=== PATIENT | female | born 1970 | race Hispanic/Latino ===

== ENCOUNTER 2016-10-03 11:57 | Inpatient (IN) | payer MEDICARE ==
[2016-10-03 11:58] VITALS: BMI 21.8
[2016-10-03 13:13] LABS: BASO # 0.1 K/uL (0.0-0.2); BASO % 0.9 % (0.0-2.0); EOS # 0.1 K/uL (0.0-0.7); EOS % 0.7 % (0.0-4.0); HEMATOCRIT 41.7 % (34.0-47.0); LYMPH # 1.9 K/uL (1.0-4.3); LYMPH % 22.4 % (20.0-40.0); MEAN CELL VOLUME 95.1 fL (81.0-99.0); MEAN CORPUSCULAR HEMOGLOBIN 31.6 pg (27.0-31.0); MEAN CORPUSCULAR HGB CONC 33.2 g/dL (33.0-37.0); MEAN PLATELET VOLUME 9.5 fL (7.2-11.7); MONO # 0.4 K/uL (0.0-0.8); MONO % 4.2 % (0.0-10.0); WHITE BLOOD COUNT 8.7 K/uL (4.8-10.8)
[2016-10-03 13:20] LABS: CHLORIDE 103 mmol/L (98-107)
[2016-10-03 13:21] LABS: POTASSIUM 4.3 mmol/L (3.6-5.2); SODIUM 138 mmol/L (132-148)
[2016-10-03 13:23] LABS: ALB/GLOB RATIO 1.3 (1.0-2.1); ALKALINE PHOSPHATASE 71 U/L (38-126); ALT/SGPT 54 U/L (9-52); AST/SGOT 53 U/L (14-36); BILIRUBIN,TOTAL 0.6 mg/dL (0.2-1.3); BLOOD UREA NITROGEN 14 mg/dL (7-17); CARBON DIOXIDE 27 mmol/L (22-30); GFR AFRICAN-AMERICAN > 60; GLUCOSE,RANDOM 94 mg/dL (65-105); TOTAL PROTEIN 7.1 g/dL (6.3-8.3)
[2016-10-03 13:24] LABS: ALCOHOL SERUM < 10 mg/dl (0-10); CALCIUM 8.5 mg/dl (8.6-10.4)
[2016-10-03 13:36] LABS: RBC URINE 9 /hpf (0-3); URINE BILIRUBIN NEGATIVE (NEGATIVE); URINE BLOOD 2+ (NEGATIVE); URINE COLOR Yellow (YELLOW); URINE GLUCOSE (UA) NORMAL (Normal); URINE KETONE NEGATIVE (NEGATIVE); URINE LEUKOCYTE ESTERASE NEG Leu/uL (Negative); URINE PROTEIN 1+ mg/dL (NEGATIVE); URINE UROBILINOGEN NORMAL mg/dL (0.2-1.0); WBC URINE 2 /hpf (0-5)
--- NOTE | 2016-10-03 14:23 | C.PDOC ---
History Of Present Illness Patient presents to ER c/o feeling depresed and suicidal. She admits to history of heroin use, sniffs 7 bags daily, last use was yesterday. Patient states she feels a little anxious at this time, but has no other physical complaints. Time Seen by Provider: 10/03/16 12:46 Chief Complaint (Nursing): Psychiatric Evaluation History Per: Patient History/Exam Limitations: no limitations Onset/Duration Of Symptoms: Persistent Current Symptoms Are (Timing): Still Present Modifying Factor(s): Narcotics Severity: Moderate Associated Symptoms: Depression, Suicidal Thoughts Involuntary Hold By: Emergency Physician Past Medical History Reviewed: Historical Data, Nursing Documentation, Vital Signs Vital Signs: Last Vital Signs Temp 97.5 F L 10/03/16 12:02 Pulse 93 H 10/03/16 12:02 Resp 19 10/03/16 12:02 BP 134/84 10/03/16 12:02 Pulse Ox 95 10/03/16 12:02 - Medical History PMH: Anxiety, Asthma, COPD Surgical History: Appendectomy, Tonsillectomy, (x 2) - [facility] Procedures INJECT/INFUSE NEC (09/20/14) NEBULIZER THERAPY (11/16/14) Family History: States: No Known Family Hx - Social History Hx Alcohol Use: No Hx Substance Use: Yes (YESTERDAY) - Immunization History Hx Influenza Vaccination: Yes Review Of Systems Except As Marked, All Systems Reviewed And Found Negative. Constitutional: Negative for: Fever, Chills Cardiovascular: Negative for: Chest Pain, Palpitations Respiratory: Negative for: Cough, Shortness of Breath Gastrointestinal: Negative for: Nausea, Vomiting, Abdominal Pain, Diarrhea Psych: Positive for: Anxiety, Depression, Suicidal ideation Physical Exam - Physical Exam Appears: Well, Non-toxic, No Acute Distress Head: Normacephalic Eye(s): bilateral: Normal Inspection Oral Mucosa: Moist Cardiovascular: Rhythm Regular Respiratory: Normal Breath Sounds, No Rales, No Rhonchi, No Wheezing Gastrointestinal/Abdominal: Normal Exam, Bowel Sounds, Soft, No Tenderness Extremity: Normal ROM Extremity: Bilateral: Atraumatic, Normal Color And Temperature, Normal ROM Neurological/Psych: Oriented x3 ED Course And Treatment - Laboratory Results Result Diagrams: 10/03/16 13:00 10/03/16 13:00 O2 Sat by Pulse Oximetry: 95 (RA) Pulse Ox Interpretation: Normal Progress Note: Blood work, UA, UDS, Upreg ordered and reviewed. Patient given PO Ativan for anxiety. 2:10pm- Patient medically cleared. 2:15pm- Patient accepted by Dr. Wise for psychiatric admission - depression, SI, heroin dependence. Disposition - Disposition Disposition Time: 14:15 Condition: STABLE - Clinical Impression Clinical Impression: Heroin dependence, Depression Decision To Admit - Pt Status Changed To: Hospital Disposition Of: Inpatient - Admit Certification Admit to Inpatient:: After my assessment, the patient will require hospitalization for at least two midnights. This is because of the severity of symptoms shown, intensity of services needed, and/or the medical risk in this patient being treated as an outpatient. - InPatient: Physician Admission Certification: I certify that this patient requires 2 or more midnights of care for the following reason:: see notes - . Bed Request Type: Psychiatry Admitting Physician: Payton Wise Patient Diagnosis: Heroin dependence, Depression
[2016-10-03 14:42] VITALS: O2SAT 96
[2016-10-03] MEDS ORDERED: Benzocaine/Menthol (Cepacol) Lozenge PO PRN (15:46)
[2016-10-04 07:36] VITALS: BP 112/78; PULSE 69; RESP 20; TEMP 98
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
[2016-10-06] MEDS ORDERED: Pneumococcal 23-Valent Vaccine IM ONE (10:00)
== END 2016-10-04 11:52 | disposition left against medical advice (07) | DRG 885 ==
LOC: C.ER 11:57 → C.5E 14:18
PROVIDERS: ADMIT Psychiatry & Neurology Psychiatry; ATTEND Psychiatry & Neurology Psychiatry
PROC: GZ3ZZZZ Medication Management (ICD-10-PCS; principal; 2016-10-03)
PROC: HZ2ZZZZ Detoxification Services for Substance Abuse Treatment (ICD-10-PCS; 2016-10-03)
PROC: GZHZZZZ Group Psychotherapy (ICD-10-PCS; 2016-10-03)
PROC: GZ56ZZZ Individual Psychotherapy, Supportive (ICD-10-PCS; 2016-10-03)
PROC: HZ59ZZZ Individual Psychotherapy for Substance Abuse Treatment, Supportive (ICD-10-PCS; 2016-10-03)
DX: F31.62 Bipolar disorder, current episode mixed, moderate (principal); R45.851 Suicidal ideations; F11.23 Opioid dependence with withdrawal; J44.9 Chronic obstructive pulmonary disease, unspecified; F17.210 Nicotine dependence, cigarettes, uncomplicated

== ENCOUNTER 2016-11-07 20:30 | Observation (INO) | payer MEDICARE ==
[2016-11-07 20:30] VITALS: BMI 21.8
--- NOTE | 2016-11-07 21:32 | C.PDOC ---
History Of Present Illness <Hans Garibay - Last Filed: 11/08/16 05:19> <Nataliia Guillermo - Last Filed: 11/08/16 08:55> <Joon Corona - Last Filed: 11/10/16 18:16> 46 y/o female presents to the ED for psychiatric evaluation after having suicidal ideations for the past 2 days. Patient admits to plan of taking pills to overdose herself. She admits that she snorts heroin and has been seeking detox. Patient has not taken her psychiatric medications because her withdrawal causes her to vomit. Patient denies homicidal ideation. (Joon Corona) <Hans Garibay - Last Filed: 11/08/16 05:19> <Nataliia Guillermo - Last Filed: 11/08/16 08:55> History Per: Patient History/Exam Limitations: no limitations Onset/Duration Of Symptoms: Days (2) Current Symptoms Are (Timing): Still Present Suicide/Self Injury Attempted (Context): None Modifying Factor(s): Other (+heroin ) Associated Symptoms: Suicidal Thoughts, Suicidal Plan Involuntary Hold By: None Recent travel outside of the [place]: No Additional History Per: Patient <Joon Corona - Last Filed: 11/10/16 18:16> Time Seen by Provider: 11/07/16 21:14 Chief Complaint (Nursing): Psychiatric Evaluation Past Medical History Reviewed: Historical Data, Nursing Documentation, Vital Signs - Medical History PMH: Anxiety, Asthma, Bipolar Disorder, COPD, Depression Surgical History: Appendectomy, Tonsillectomy, (x 2) Family History: States: Unknown Family Hx - Social History Hx Alcohol Use: No Hx Substance Use: Yes - Immunization History Hx Influenza Vaccination: Yes <Joon Corona - Last Filed: 11/10/16 18:16> Vital Signs: Last Vital Signs Temp 98.2 F 11/08/16 08:28 Pulse 70 11/08/16 08:28 Resp 18 11/08/16 08:28 BP 119/84 11/08/16 08:28 Pulse Ox 96 11/08/16 08:28 - [facility] Procedures DETOXIFICATION SERVICES FOR SUBSTANCE ABUSE TREATMENT (10/03/16) GROUP PSYCHOTHERAPY (10/03/16) INDIV PSYCHOTHERAPY FOR SUBSTANCE ABUSE TREATMENT, SUPPORT (10/03/16) INDIVIDUAL PSYCHOTHERAPY, SUPPORTIVE (10/03/16) INJECT/INFUSE NEC (09/20/14) MEDICATION MANAGEMENT (10/03/16) NEBULIZER THERAPY (11/16/14) Review Of Systems Constitutional: Negative for: Fever, Chills Cardiovascular: Negative for: Chest Pain, Palpitations Respiratory: Negative for: Cough, Shortness of Breath Gastrointestinal: Negative for: Nausea, Vomiting, Diarrhea Neurological: Negative for: Weakness, Numbness Psych: Positive for: Suicidal ideation (+with plan ) <Joon Corona - Last Filed: 11/10/16 18:16> Physical Exam - Physical Exam Appears: Non-toxic, No Acute Distress Skin: Normal Color, Warm, Dry Head: Atraumatic, Normacephalic Eye(s): right: Normal Inspection, left: Other (+ocular prosthesis in place ) Oral Mucosa: Moist Neck: Supple Chest: Symmetrical, No Deformity, No Tenderness Cardiovascular: Rhythm Regular, No Murmur Respiratory: Normal Breath Sounds, No Rales, No Rhonchi, No Wheezing Extremity: Normal ROM, Capillary Refill (less than 2 seconds ) Neurological/Psych: Oriented x3, Normal Speech, Normal Cognition Gait: Steady <Joon Corona - Last Filed: 11/10/16 18:16> ED Course And Treatment - Laboratory Results Result Diagrams: 11/07/16 21:53 11/07/16 21:53 Pulse Ox Interpretation: Normal <Hans Garibay - Last Filed: 11/08/16 05:19> - Laboratory Results Result Diagrams: 11/07/16 21:53 11/07/16 21:53 <Nataliia Guillermo A - Last Filed: 11/08/16 08:55> - Laboratory Results Result Diagrams: 11/07/16 21:53 11/07/16 21:53 O2 Sat by Pulse Oximetry: 98 (on RA) Pulse Ox Interpretation: Normal <Joon Corona - Last Filed: 11/10/16 18:16> Medical Decision Making <Hans Garibay - Last Filed: 11/08/16 05:19> <Nataliia Guillermo A - Last Filed: 11/08/16 08:55> <Joon Corona - Last Filed: 11/10/16 18:16> Medical Decision Making: EKG: Ordered, reviewed, and independently interpreted the EKG. Rate: 74 BPM Rhythm: Normal Sinus Rhythm 0100 pt s/o to Dr Garibay pending psych eval in the am (Joon Corona) ED OBSERVATION Date of observation admission: 11/08/16 Time of observation admission: 00:55 <Hans Garibay - Last Filed: 11/08/16 05:19> <Nataliia Guillermo - Last Filed: 11/08/16 08:55> <Joon Corona - Last Filed: 11/10/16 18:16> - Observation admission statement Patient is being placed in observation because:: suicidal ideation (Hans Garibay) - Goals of Observation Goals of observation are:: psychiatric evaluation (Hans Garibay) - Progress Note Progress Note: 11/08/16 00:55 vitals stable 11/08/16 03:05 no complaints 11/08/16 05:19 vitals stable (Hans Garibay) Disposition Counseled Patient/Family Regarding: Studies Performed, Diagnosis - Disposition Disposition Time: 07:00 <Hans Garibay - Last Filed: 11/08/16 05:19> <Nataliia Guillermo - Last Filed: 11/08/16 08:55> <Joon Corona - Last Filed: 11/10/16 18:16> - Disposition Disposition: HOME/ ROUTINE Condition: UNKNOWN - Clinical Impression Clinical Impression: Depression <Hans Garibay - Last Filed: 11/08/16 05:19> <Nataliia Guillermo - Last Filed: 11/08/16 08:55> - Scribe Statement The provider has reviewed the documentation as recorded by the Scribe (Caitlyn Price) <Joon Corona - Last Filed: 11/10/16 18:16> - Scribe Statement Provider Attestation: All medical record entries made by the Scribe were at my direction and personally dictated by me. I have reviewed the chart and agree that the record accurately reflects my personal performance of the history, physical exam, medical decision making, and the department course for this patient. I have also personally directed, reviewed, and agree with the discharge instructions and disposition. (Joon Corona) Physician Patient Turnover Patient Signed Over To: Nataliia Guillermo Handoff Comments: pending psychiatrist evaluation and disposition <Hans Garibay - Last Filed: 11/08/16 05:19> Addendum <Hans Garibay - Last Filed: 11/08/16 05:19> <Nataliia Guillermo - Last Filed: 11/08/16 08:55> <Joon Corona - Last Filed: 11/10/16 18:16> Addendum: 11/08/16 08:55 Patient given her psychiatric medications, states she has not been able to tolerate them in 2 days due to vomiting from heroin withdrawal. TERESITA CAMPBELL. Patient has been evaluated in ED by Dr. Wise, has cleared patient for discharge from psychiatric standpoint. Will discharge home at this time. She denies current SI/HI. Requesting methadone, however explained to patient she will not be getting methadone in ED. She understands she should return to ED if she develops concerning symptoms. (Nataliia Guillermo)
[2016-11-07 22:01] LABS: BASO # 0.1 K/uL (0.0-0.2); BASO % 1.2 % (0.0-2.0); EOS # 0.2 K/uL (0.0-0.7); EOS % 2.4 % (0.0-4.0); HEMOGLOBIN 13.8 g/dL (11.0-16.0); LYMPH # 3.6 K/uL (1.0-4.3); LYMPH % 35.6 % (20.0-40.0); MEAN CELL VOLUME 96.1 fL (81.0-99.0); MEAN CORPUSCULAR HEMOGLOBIN 32.3 pg (27.0-31.0); MEAN CORPUSCULAR HGB CONC 33.6 g/dL (33.0-37.0); MEAN PLATELET VOLUME 9.1 fL (7.2-11.7); MONO # 0.6 K/uL (0.0-0.8); MONO % 5.8 % (0.0-10.0); NEUT # 5.5 K/uL (1.8-7.0); RBC 4.26 Mil/uL (3.80-5.20); RED CELL DISTRIBUTION WIDTH 14.1 % (11.5-14.5)
[2016-11-07 22:04] LABS: SQUAMOUS EPITHIAL 2 /hpf (0-5); URINE BACTERIA RARE (<OCC); URINE BILIRUBIN NEGATIVE (NEGATIVE); URINE BLOOD NEGATIVE (NEGATIVE); URINE CLARITY Clear (Clear); URINE COLOR Yellow (YELLOW); URINE GLUCOSE (UA) NORMAL (Normal); URINE LEUKOCYTE ESTERASE NEG Leu/uL (Negative); URINE NITRATE NEGATIVE (NEGATIVE); URINE PROTEIN NEGATIVE (NEGATIVE); URINE UROBILINOGEN NORMAL mg/dL (0.2-1.0)
[2016-11-07 22:05] LABS: ALBUMIN 3.7 g/dL (3.5-5.0); HCG,QUALITATIVE URINE NEGATIVE (NEGATIVE)
[2016-11-07 22:08] LABS: ALB/GLOB RATIO 1.2 (1.0-2.1); AST/SGOT 28 U/L (14-36); GFR AFRICAN-AMERICAN > 60; GFR NON-AFRICAN AMERICAN > 60
[2016-11-07 22:09] LABS: ALT/SGPT 37 U/L (9-52); BLOOD UREA NITROGEN 18 mg/dL (7-17); SALICYLATE < 1.0 mg/dL 1
[2016-11-07 22:11] LABS: ACETAMINOPHEN < 10.0 ug/mL (10.0-30.0)
[2016-11-07 22:11] LABS: OPIATES, UR POSITIVE (NEGATIVE); PHENCYCLIDINE, UR NEGATIVE (NEGATIVE)
[2016-11-07 22:16] LABS: BARBITURATES, UR NEGATIVE (NEGATIVE)
[2016-11-07 22:19] LABS: BENZODIAZEPINES, UR POSITIVE (NEGATIVE)
[2016-11-08 08:28] VITALS: BP 119/84; PULSE 70; RESP 18; TEMP 98.2
--- NOTE | 2016-11-08 09:53 | PCM.PSYCH ---
Initial Psychiatric Evaluation - Initial Psychiatric Evaluation Type of Admission: Voluntary Legal Status: Capacity Chief Complaint (in patient's own words): I was feeling depressed.' History of Present Illness and Precipitating Events: Pt is a 46 year old female self-referred to [facility] for opiate w/d and suicidal thoughts with a plan to overdose x2 days. Pt states she is detoxing off of heroin, and "I don't like the thoughts I'm having, I have a plan to overdose." Pt reports a long history of opioid abuse. Pt states she is in outpatient treatment, and sees on "[facility]," last seen 1 month ago, and prescribed Prozac 10mg QD, Risperidone 1mg QD, Neurontin 600mg BID, and Alprazolam 1mg BID. Pt states last use of heroin was at 3AM, when using 7 bags intranasally, which is her average daily use. Pt states the trigger for relapse is the episode of shingles that started 2 weeks ago, and "has been trying to detox alone, but the thoughts are there." Pt reports the following w/d symptoms: nausea/vomiting; stomach pain; joint/muscle pain; irritable mood. Pt presents with self-reported depressed and irritable mood, but affect is non- congruent to her mood. Pt remained calm and cooperative throughout assessment, and is requesting inpatient psychiatric admission at this time. Past Psychiatric History - Past Psychiatric History Previous Treatment History: Inpatient Pertinent Medical Hx (Current Medical&Sleep Prob, Allergies): Allergies Allergy/AdvReac Type Severity Reaction Status Date / Time No Known Allergies Allergy Verified 11/07/16 21:00 ALPRAZolam [Xanax] 1 mg PO BID 04/26/16 FLUoxetine [Prozac] 10 mg PO DAILY 04/26/16 Gabapentin [Neurontin] 600 mg PO BID 04/26/16 Risperidone [Risperdal] 1 mg PO DAILY 04/26/16 Albuterol HFA [Ventolin HFA 90 mcg/actuation (8 g)] 2 puff IH Q6H PRN 11/07/16 Ondansetron [Zofran Odt] 4 mg PO Q8 PRN #10 odt 11/08/16 Review of Systems - Review of Systems All systems: reviewed and no additional remarkable complaints except - Psychiatric Psychiatric: Anxiety, Irritability, Suicidal Ideation Mental Status Examination - Personal Presentation Personal Presentation: Looks stated age - Affect Affect: Constricted, Depressed - Motor Activity Motor Activity: Calm - Reliability in Providing Information Reliability in Providing Information: Good - Speech Speech: Organized - Mood Mood: Depressed, Anxious - Formal Thought Process Formal Thought Process: No Impairment - Obsessions/Compulsions Obsessions: No Compulsions: No - Cognitive Functions Orientation: Person, Place, Situation, Time Sensorium: Alert Attention/Concentration: Attentive Abstract Thinking: [place] Estimate of Intelligence: Below average Judgement: Imparied, as evidence by: Poor judgement, Intact, as evidence by: Insight regarding need for hospitalization - Risk Risk: Withdrawal, Diminished functioning - Strength & Assets Inventory Strength & Assets Inventory: Family support DSM 5 DX - DSM 5 DSM 5 Diagnosis: Opioid use disorder severe Opioid withdrawal Bipolar disorder - Recommended/Plan of Treatment Treatment Recommendations and Plan of Treatment: Since there were no beds in the 5E pt was informed that she will be transferred to [facility]. Pt signed AMA. Pt psychiatrically stable to be discharged back to the family
--- NOTE | 2016-11-08 12:02 | RAD ---
HISTORY: psych COMPARISON: No prior. FINDINGS: LUNGS: No focal infiltrate or effusion. Bibasilar breast and nipple shadows. PLEURA: No significant pleural effusion identified, no pneumothorax apparent. CARDIOVASCULAR: Normal. OSSEOUS STRUCTURES: No significant abnormalities. VISUALIZED UPPER ABDOMEN: Normal. OTHER FINDINGS: None. IMPRESSION: No focal infiltrate or effusion. Bibasilar breast and nipple shadows.
--- NOTE | 2016-11-09 13:36 | CARD ---
APPROVED REPORT EKG Measurement Heart [id number] <Conclusion> Normal sinus rhythm Cannot rule out Anterior infarct, age undetermined Abnormal ECG
[2016-11-10 18:16] VITALS: O2SAT 98
== END 2016-11-08 08:58 | disposition home or self-care (01) ==
LOC: C.ER 20:30 → C.9OBSV 11-08 00:56
PROVIDERS: ADMIT Emergency Medicine; ATTEND Emergency Medicine
DX: F11.10 Opioid abuse, uncomplicated (principal); R45.851 Suicidal ideations; F31.81 Bipolar II disorder; B02.9 Zoster without complications; F19.10 Other psychoactive substance abuse, uncomplicated
CPT/HCPCS: 71010; 80053; 81001; 84703; 85025; G0378; G0480

== ENCOUNTER 2017-02-24 13:30 | Inpatient (IN) | payer MEDICARE ==
[2017-02-24 13:30] VITALS: BMI 21.8
[2017-02-24 13:45] VITALS: RESP 18
--- NOTE | 2017-02-24 14:09 | C.PDOC ---
History Of Present Illness 46 y/o female presents to ED requesting detox from heroin. Last use was at 2- 3AM. Pt is pre-screened. Denies SI, HI, or any other active physical complaints at this time. Time Seen by Provider: 02/24/17 13:56 Chief Complaint (Nursing): Substance Abuse History Per: Patient History/Exam Limitations: no limitations Onset/Duration Of Symptoms: Gradual Current Symptoms Are (Timing): Still Present Suicide/Self Injury Attempted (Context): None Severity: None Pain Scale Rating Of: 0 Associated Symptoms: denies: Depression, Suicidal Thoughts, Suicidal Plan Involuntary Hold By: None Recent travel outside of the [place]: No Additional History Per: Patient Past Medical History Reviewed: Historical Data, Nursing Documentation, Vital Signs Vital Signs: Last Vital Signs Temp 97.9 F 02/24/17 13:37 Pulse 99 H 02/24/17 13:37 Resp 18 02/24/17 13:37 BP 109/77 02/24/17 13:37 Pulse Ox 93 L 02/24/17 15:14 - Medical History PMH: Anxiety, Asthma, Bipolar Disorder, COPD, Depression Denies: Diabetes, Hepatitis, HIV, HTN, Chronic Kidney Disease, Seizures, Sexually Transmitted Disease Surgical History: Appendectomy, Tonsillectomy, (x 2) - [facility] Procedures DETOXIFICATION SERVICES FOR SUBSTANCE ABUSE TREATMENT (10/03/16) GROUP PSYCHOTHERAPY (10/03/16) INDIV PSYCHOTHERAPY FOR SUBSTANCE ABUSE TREATMENT, SUPPORT (10/03/16) INDIVIDUAL PSYCHOTHERAPY, SUPPORTIVE (10/03/16) INJECT/INFUSE NEC (09/20/14) MEDICATION MANAGEMENT (10/03/16) NEBULIZER THERAPY (11/16/14) Family History: States: Unknown Family Hx - Social History Hx Alcohol Use: No Hx Substance Use: Yes - Immunization History Hx Tetanus Toxoid Vaccination: No Hx Influenza Vaccination: Yes Hx Pneumococcal Vaccination: Yes Review Of Systems Except As Marked, All Systems Reviewed And Found Negative. Constitutional: Negative for: Fever, Chills Cardiovascular: Negative for: Chest Pain Respiratory: Negative for: Shortness of Breath Psych: Negative for: Suicidal ideation Physical Exam - Physical Exam Additional Physical Exam Comments: Constitutional: No acute distress. Head: Normocephalic. Atraumatic. Eyes: PERRL. ENT: Moist mucous membranes. Neck: Supple. Cardiovascular: Regular rate. Radial pulse 2+ bilaterally. Chest: No tenderness. Respiratory: Clear to auscultation bilaterally. GI: Soft. Nontender. Nondistended. Back: No CVA tenderness. Musculoskeletal: No tenderness or swelling of extremities. Skin: No rash. Neurologic: Alert, no focal deficit. ED Course And Treatment - Laboratory Results Result Diagrams: 02/24/17 14:07 02/24/17 14:07 O2 Sat by Pulse Oximetry: 93 Medical Decision Making Medical Decision Making: Plan: * Blood work * Urinalysis Disposition Discussed With : Juvenal Preciado Doctor Will See Patient In The: Hospital - Disposition Disposition: HOSPITALIZED Disposition Time: 15:14 Condition: FAIR Forms: [employer] (Lao) - Clinical Impression Clinical Impression: Opioid use disorder, severe, dependence - Scribe Statement The provider has reviewed the documentation as recorded by the Scribbrigitte Price All medical record entries made by the Scribe were at my direction and personally dictated by me. I have reviewed the chart and agree that the record accurately reflects my personal performance of the history, physical exam, medical decision making, and the department course for this patient. I have also personally directed, reviewed, and agree with the discharge instructions and disposition.
[2017-02-24 14:18] LABS: BASO # 0.1 K/uL (0.0-0.2); BASO % 1.1 % (0.0-2.0); EOS # 0.1 K/uL (0.0-0.7); EOS % 0.6 % (0.0-4.0); HEMATOCRIT 41.8 % (34.0-47.0); LYMPH # 2.5 K/uL (1.0-4.3); LYMPH % 22.2 % (20.0-40.0); MEAN CELL VOLUME 94.5 fL (81.0-99.0); MEAN CORPUSCULAR HEMOGLOBIN 32.3 pg (27.0-31.0); MEAN CORPUSCULAR HGB CONC 34.2 g/dL (33.0-37.0); MEAN PLATELET VOLUME 9.2 fL (7.2-11.7); MONO # 0.5 K/uL (0.0-0.8); MONO % 4.3 % (0.0-10.0); RED CELL DISTRIBUTION WIDTH 13.3 % (11.5-14.5); WHITE BLOOD COUNT 11.4 K/uL (4.8-10.8)
[2017-02-24 14:23] LABS: RBC URINE 9 /hpf (0-3); URINE BILIRUBIN NEGATIVE (NEGATIVE); URINE COLOR Yellow (YELLOW); URINE GLUCOSE (UA) NORMAL (Normal); URINE KETONE NEGATIVE (NEGATIVE); URINE LEUKOCYTE ESTERASE NEG Leu/uL (Negative); URINE PROTEIN NEGATIVE (NEGATIVE); URINE UROBILINOGEN NORMAL mg/dL (0.2-1.0); WBC URINE 1 /hpf (0-5)
[2017-02-24 14:24] LABS: URINE BLOOD 2+ (NEGATIVE)
[2017-02-24 14:37] LABS: CHLORIDE 101 mmol/L (98-107)
[2017-02-24 14:38] LABS: POTASSIUM 4.2 mmol/L (3.6-5.2); SODIUM 135 mmol/L (132-148)
[2017-02-24 14:40] LABS: ALB/GLOB RATIO 1.5 (1.0-2.1); BILIRUBIN,TOTAL 0.9 mg/dL (0.2-1.3); CARBON DIOXIDE 24 mmol/L (22-30); GFR AFRICAN-AMERICAN > 60; TOTAL PROTEIN 7.3 g/dL (6.3-8.3)
[2017-02-24 14:41] LABS: ALCOHOL SERUM < 10 mg/dl (0-10); ALKALINE PHOSPHATASE 65 U/L (38-126); ALT/SGPT 70 U/L (9-52); AST/SGOT 53 U/L (14-36); BLOOD UREA NITROGEN 9 mg/dL (7-17); CALCIUM 8.9 mg/dl (8.6-10.4); GLUCOSE,RANDOM 100 mg/dL (65-105)
[2017-02-24] MEDS ORDERED: Aluminum Hydroxide/Magnesium Hydroxide Susp (30 mL) PO PRN (16:49)
[2017-02-24] MEDS ORDERED: Albuterol HFA 90 mcg/actuation (8 g) INH PRN (16:53)
--- NOTE | 2017-02-24 17:40 | PCM.BM ---
<OsbaldoFlora - Last Filed: 02/24/17 17:39> Treatment Plan Problems - Problems identified on initial assessmt Potential for opioid withdrawal Date Initiated: 02/24/17 Time Initiated: 17:40 Assessment reference: NA Status: Active Priority: 1 Treatment assets and liabiliti Patient Assests: cooperative, ADL independent, negotiates basic needs, cognitively intact Patient Liabilities: substance abuse - Milieu Protocol Maintain good personal hygiene: daily Encourage regular showers, daily Remind patient to perform daily oral care, daily Assist patient to perform ADL's Conduct patient checks and document Observation sheet: Q15 minutes Maintain personal safety: every shift Educate patient to report safety concerns to staff, every shift Monitor environment for contraband/sharps Medication safety: Monitor for expected outcome, potential side effects: every shift, Assess barriers to learning: every shift, Assess readiness for medication education: every shift <Aj Zavala - Last Filed: 02/25/17 19:28> - Diagnosis (1) Bipolar disorder current episode depressed Status: Acute Interventions: Assess/adjust medications daily and/or as needed SEE patient on him individual basis 7x/week to assess status of hallucinations. Discuss risks, benefits, side effects and alternatives of medications. 02/25/17 19:27 (2) Opiate dependence, continuous Status: Acute Interventions: Assess 7x/week regarding severity of withdrawal Educated regarding risks, benefits, side effects and alternatives of medications Used motivational interview for abstinence Used CBT for relapse prevention Medication management for withdrawal symptoms Encouraged medication assisted treatment 02/25/17 19:27
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
[2017-02-26 09:56] VITALS: TEMP 98
[2017-02-26 13:41] VITALS: BP 94/68; PULSE 90; O2SAT 95
--- NOTE | 2017-02-26 15:13 | PCM.PYCHPN ---
Psychiatric Progress Note - Psychiatric Progress Note Patient seen today, length of contact: 15 minutes Patient Chief Complaint: I'm feeling much better. Can I go home today. Problems Identified/Issues Discussed: Patient seen. Chart reviewed. Case discussed with the staff. Issues related to illness and treatment were discussed with the patient. Reported compliant with treatment with no adverse affects. Tolerating treatment very well. Patient reported feeling much better with the treatment and also wanted to go home today. Education provided about completion of detox, patient understood and stated. At the time of evaluation, patient was awake alert oriented 3, had no delusions , no auditory or visual hallucinations, no suicidal ideation or homicidal ideations. Medical Problems: Asthma Diagnostic Results: Reviewed DSM 5 Symptoms Update: Some improvement with treatment Medication Change: No Medical Record Reviewed: Yes Mental Status Examination - Cognitive Function Orientation: Person, Place, Situation, Time Memory: Intact Attention: WNL Concentration: WNL Association: WN Fund of Knowledge: [facility] Decription of patient's judgement and insights: Fair - Mood Mood: Depressed - Affect Affect: Depressed - Speech Speech: Appropriate - Formal Thought Process Formal Thought Process: No Impairment Psychotic Thoughts and Behaviors: None - Suicidal Ideation Suicidal Ideation: No - Homicidal Ideation Homicidal Ideation: No Goal/Treatment Plan - Goal/Treatment Plan Need for Continued Stay: Remain at risks for inpatient hospitalization, Discharge may exacerbated symptoms, Severe functional impairment Progress Toward Problem(s) and Goals/Treatment Plan: Patient education Supportive therapy Continue treatment as before Motivational interview for abstinence CBT for relapse prevention Estimated Date of D/C: 02/28/17 - Smoking Cessation Smoking Cessation Initiated: Yes
== END 2017-02-26 15:30 | disposition left against medical advice (07) | DRG 885 ==
LOC: C.ER 13:30 → C.7D 15:28
PROVIDERS: ADMIT Psychiatry & Neurology Psychiatry; ATTEND Psychiatry & Neurology Psychiatry
DX: F31.9 Bipolar disorder, unspecified (principal); F11.23 Opioid dependence with withdrawal; J45.909 Unspecified asthma, uncomplicated; F19.10 Other psychoactive substance abuse, uncomplicated; Z68.22 Body mass index [BMI] 22.0-22.9, adult

== ENCOUNTER 2017-04-27 15:50 | Inpatient (IN) | payer MEDICARE ==
[2017-04-27 15:50] VITALS: BMI 21.8
[2017-04-27 16:50] LABS: SQUAMOUS EPITHIAL 2 /hpf (0-5); URINE BILIRUBIN NEGATIVE (NEGATIVE); URINE BLOOD 1+ (NEGATIVE); URINE CLARITY Clear (Clear); URINE COLOR Yellow (YELLOW); URINE GLUCOSE (UA) NORMAL (Normal); URINE LEUKOCYTE ESTERASE NEG Leu/uL (Negative); URINE NITRATE NEGATIVE (NEGATIVE); URINE PROTEIN NEGATIVE (NEGATIVE); URINE UROBILINOGEN NORMAL mg/dL (0.2-1.0)
[2017-04-27 16:51] LABS: HCG,QUALITATIVE URINE NEGATIVE (NEGATIVE)
[2017-04-27 16:55] LABS: BASO # 0.1 K/uL (0.0-0.2); BASO % 1.1 % (0.0-2.0); EOS # 0.1 K/uL (0.0-0.7); EOS % 1.7 % (0.0-4.0); HEMOGLOBIN 13.6 g/dL (11.0-16.0); LYMPH # 2.5 K/uL (1.0-4.3); LYMPH % 29.6 % (20.0-40.0); MEAN CELL VOLUME 95.7 fL (81.0-99.0); MEAN CORPUSCULAR HEMOGLOBIN 32.2 pg (27.0-31.0); MEAN CORPUSCULAR HGB CONC 33.6 g/dL (33.0-37.0); MEAN PLATELET VOLUME 9.1 fL (7.2-11.7); MONO # 0.7 K/uL (0.0-0.8); MONO % 8.7 % (0.0-10.0); NEUT % 58.9 % (50.0-75.0); NRBC % 0.1 % (0.0-2.0); RBC 4.24 Mil/uL (3.80-5.20); RED CELL DISTRIBUTION WIDTH 14.7 % (11.5-14.5); WHITE BLOOD COUNT 8.5 K/uL (4.8-10.8)
[2017-04-27 16:59] LABS: ACETAMINOPHEN < 10.0 ug/mL (10.0-30.0); SALICYLATE < 1.0 mg/dL 1
--- NOTE | 2017-04-27 17:01 | C.PDOC ---
History Of Present Illness 46 year old female with PMHx of bipolar disorder and Hx of heroin abuse presents to the ED for evaluation of SI thought with a plan. Patient reports she used to sniff 6-10 bags of heroin a day, patient states he stopped using heroin yesterday to detox from it. Patient reports having SI with a plan to OD on medications denies doing it. Patient denies HI, hallucinations, other physical complaints. Time Seen by Provider: 04/27/17 16:19 Chief Complaint (Nursing): Psychiatric Evaluation History Per: Patient History/Exam Limitations: no limitations Onset/Duration Of Symptoms: Hrs Current Symptoms Are (Timing): Still Present Suicide/Self Injury Attempted (Context): None Modifying Factor(s): Other (Heroin) Associated Symptoms: Suicidal Thoughts, Suicidal Plan. denies: Depression Involuntary Hold By: None Recent travel outside of the [place]: No Additional History Per: Patient Past Medical History Reviewed: Historical Data, Nursing Documentation, Vital Signs Vital Signs: Last Vital Signs Temp 97.4 F L 04/27/17 18:30 Pulse 65 04/27/17 18:30 Resp 18 04/27/17 18:30 BP 121/89 04/27/17 18:30 Pulse Ox 100 04/27/17 18:30 - Medical History PMH: Anxiety, Asthma, Bipolar Disorder, COPD, Depression Denies: Diabetes, Hepatitis, HIV, HTN, Chronic Kidney Disease, Seizures, Sexually Transmitted Disease Surgical History: Appendectomy, Tonsillectomy, (x 2) - [facility] Procedures DETOXIFICATION SERVICES FOR SUBSTANCE ABUSE TREATMENT (10/03/16) GROUP PSYCHOTHERAPY (10/03/16) INDIV PSYCHOTHERAPY FOR SUBSTANCE ABUSE TREATMENT, SUPPORT (10/03/16) INDIVIDUAL PSYCHOTHERAPY, SUPPORTIVE (10/03/16) INJECT/INFUSE NEC (09/20/14) MEDICATION MANAGEMENT (10/03/16) NEBULIZER THERAPY (11/16/14) Family History: States: Unknown Family Hx - Social History Hx Alcohol Use: No Hx Substance Use: Yes - Immunization History Hx Tetanus Toxoid Vaccination: No Hx Influenza Vaccination: Yes Hx Pneumococcal Vaccination: Yes Review Of Systems Constitutional: Negative for: Fever, Chills Cardiovascular: Negative for: Chest Pain Respiratory: Negative for: Cough, Shortness of Breath Gastrointestinal: Negative for: Nausea, Vomiting, Abdominal Pain Skin: Negative for: Rash Neurological: Negative for: Weakness, Numbness Psych: Positive for: Suicidal ideation. Negative for: Depression Physical Exam - Physical Exam Appears: Non-toxic, No Acute Distress Skin: Normal Color, Warm, Dry Head: Atraumatic, Normacephalic Eye(s): left: Other (prostetic eye) Nose: No Discharge Oral Mucosa: Moist Neck: Normal ROM, Supple Chest: Symmetrical Cardiovascular: Rhythm Regular, No Murmur Respiratory: Normal Breath Sounds, No Rales, No Rhonchi, No Wheezing Gastrointestinal/Abdominal: Soft, No Tenderness Extremity: Normal ROM, No Pedal Edema, No Calf Tenderness, No Deformity, No Swelling Neurological/Psych: Oriented x3, Normal Speech, Normal Cognition ED Course And Treatment - Laboratory Results Result Diagrams: 04/27/17 16:30 04/27/17 16:30 O2 Sat by Pulse Oximetry: 97 (On RA) Pulse Ox Interpretation: Normal Medical Decision Making Medical Decision Making: Impression : SI with a plan post heroin detox Plan: * Blood work * UA * 1:1 observation Disposition - Disposition Disposition Time: 18:00 Condition: STABLE Forms: [facility] (Polish) - Clinical Impression Clinical Impression: Bipolar disorder - Scribe Statement The provider has reviewed the documentation as recorded by the Scribe Dhruv Pa All medical record entries made by the Scribe were at my direction and personally dictated by me. I have reviewed the chart and agree that the record accurately reflects my personal performance of the history, physical exam, medical decision making, and the department course for this patient. I have also personally directed, reviewed, and agree with the discharge instructions and disposition.
[2017-04-27 17:04] LABS: ALB/GLOB RATIO 1.1 (1.0-2.1); ALBUMIN 4.1 g/dL (3.5-5.0); ALT/SGPT 153 U/L (9-52); AST/SGOT 122 U/L (14-36); BLOOD UREA NITROGEN 7 mg/dL (7-17); CALCIUM 8.5 mg/dl (8.6-10.4); GFR AFRICAN-AMERICAN > 60; GFR NON-AFRICAN AMERICAN > 60
[2017-04-27 17:05] LABS: BARBITURATES, UR NEGATIVE (NEGATIVE); PHENCYCLIDINE, UR NEGATIVE (NEGATIVE)
[2017-04-27 17:08] LABS: BENZODIAZEPINES, UR POSITIVE (NEGATIVE); OPIATES, UR POSITIVE (NEGATIVE)
[2017-04-27 18:50] VITALS: O2SAT 97
--- NOTE | 2017-04-27 19:18 | PCM.BM ---
Treatment Plan Problems - Problems identified on initial assessmt Depression Date Initiated: 04/27/17 Time Initiated: 19:17 Assessment reference: NA Status: Active Comment: Long hx of heroin abuse/multiple admissions Treatment assets and liabiliti Patient Assests: cooperative, ADL independent, negotiates basic needs, cognitively intact - Milieu Protocol Maintain good personal hygiene: daily Encourage regular showers, daily Remind patient to perform daily oral care Conduct patient checks and document Observation sheet: Q15 minutes Maintain personal safety: every shift Educate patient to report safety concerns to staff, every shift Monitor environment for contraband/sharps Medication safety: Monitor for expected outcome, potential side effects: every shift, Assess barriers to learning: every shift, Assess readiness for medication education: every shift
[2017-04-27] MEDS ORDERED: Albuterol HFA 90 mcg/actuation (8 g) INH PRN (19:24)
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
[2017-04-29 16:56] VITALS: RESP 20
[2017-05-01 10:16] VITALS: BP 108/69; PULSE 82; TEMP 98.2
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
--- NOTE | 2017-05-02 06:45 | PCM.PYCHPN ---
Psychiatric Progress Note - Psychiatric Progress Note Patient seen today, length of contact: 15 MIN Patient Chief Complaint: I AM FEELING LOUSY BUT BESSIE LESS DEPRESSED Problems Identified/Issues Discussed: SYMPTOMS OF OPIATE WITHDRAWAL MATURATION OF BIPOLAR DISORDER Diagnostic Results: NOTHING ACUTE DSM 5 Symptoms Update: REVIEWED Medication Change: Yes (SEROQUEL) Medical Record Reviewed: Yes Mental Status Examination - Cognitive Function Orientation: Person, Place, Situation, Time Memory: Intact Attention: WNL Concentration: WNL Association: WNL Fund of Knowledge: WNL - Mood Mood: Neutral - Affect Affect: Constricted - Speech Speech: Appropriate, Soft - Formal Thought Process Formal Thought Process: No Impairment - Suicidal Ideation Suicidal Ideation: No - Homicidal Ideation Homicidal Ideation: No Goal/Treatment Plan - Goal/Treatment Plan Need for Continued Stay: Discharge may exacerbated symptoms Progress Toward Problem(s) and Goals/Treatment Plan: BIPOLAR DISORDER RISPERDAL NEURONTIN OPIATE WITHDRAWAL METHADONE TAPER Estimated Date of D/C: 05/01/17 - Smoking Cessation Smoking Cessation Initiated: Yes
--- NOTE | 2017-05-02 06:50 | PCM.PYCHPN ---
Psychiatric Progress Note - Psychiatric Progress Note Patient seen today, length of contact: 15 MIN Patient Chief Complaint: I FEEL BETTER AND I AM STARTING TO FEEL SOMEWHAT HAPPY. Problems Identified/Issues Discussed: POST ACUTE WITHDRAWAL SYNDROME ADHERENCE TO MEDS AND TREATMENT HOW TO MAINTAIN SOBRIETY Medical Problems: NOTHING ACUTE Diagnostic Results: REVIEWED Medication Change: No (SEROQUEL) Medical Record Reviewed: Yes Mental Status Examination - Cognitive Function Orientation: Place, Situation Memory: Intact Attention: WNL Concentration: WNL Association: WNL Fund of Knowledge: WNL - Mood Mood: Neutral - Affect Affect: Constricted - Speech Speech: Appropriate - Formal Thought Process Formal Thought Process: No Impairment - Suicidal Ideation Suicidal Ideation: No - Homicidal Ideation Homicidal Ideation: No Goal/Treatment Plan - Goal/Treatment Plan Need for Continued Stay: Discharge may exacerbated symptoms Progress Toward Problem(s) and Goals/Treatment Plan: BIPOLAR DISORDER RISPERDAL NEURONTIN SEROQUEL OPIATE WITHDRAWAL METHADONE TAPERE Estimated Date of D/C: 05/01/17 - Smoking Cessation Smoking Cessation Initiated: No
== END 2017-05-01 12:25 | disposition home or self-care (01) | DRG 895 ==
LOC: C.ER 15:50 → C.5E 18:39
PROVIDERS: ADMIT Psychiatry & Neurology Psychiatry; ATTEND Psychiatry & Neurology Psychiatry
PROC: HZ2ZZZZ Detoxification Services for Substance Abuse Treatment (ICD-10-PCS; principal; 2017-04-27)
PROC: HZ52ZZZ Individual Psychotherapy for Substance Abuse Treatment, Cognitive-Behavioral (ICD-10-PCS; 2017-04-27)
PROC: HZ42ZZZ Group Counseling for Substance Abuse Treatment, Cognitive-Behavioral (ICD-10-PCS; 2017-04-27)
PROC: HZ59ZZZ Individual Psychotherapy for Substance Abuse Treatment, Supportive (ICD-10-PCS; 2017-04-27)
PROC: HZ56ZZZ Individual Psychotherapy for Substance Abuse Treatment, Psychoeducation (ICD-10-PCS; 2017-04-27)
PROC: HZ46ZZZ Group Counseling for Substance Abuse Treatment, Psychoeducation (ICD-10-PCS; 2017-04-27)
DX: F11.23 Opioid dependence with withdrawal (principal); R45.851 Suicidal ideations; F31.9 Bipolar disorder, unspecified; H54.62 Unqualified visual loss, left eye, normal vision right eye; F41.9 Anxiety disorder, unspecified; J44.9 Chronic obstructive pulmonary disease, unspecified; F17.210 Nicotine dependence, cigarettes, uncomplicated

== ENCOUNTER 2017-05-22 14:57 | Inpatient (IN) | payer MEDICARE ==
[2017-05-22 14:58] VITALS: BMI 21.8
--- NOTE | 2017-05-22 15:57 | C.PDOC ---
History Of Present Illness 47 y/o female presents to the ER for suicidal ideation. Patient reports that she wants to kill herself. Of note, patient states that she uses heroin. Patient does not have any other complaints. Time Seen by Provider: 05/22/17 15:28 Chief Complaint (Nursing): Psychiatric Evaluation History Per: Patient History/Exam Limitations: no limitations Onset/Duration Of Symptoms: Hrs Current Symptoms Are (Timing): Still Present Past Medical History Reviewed: Historical Data, Nursing Documentation, Vital Signs Vital Signs: Last Vital Signs Temp 97.5 F L 05/22/17 15:00 Pulse 77 05/22/17 15:00 Resp 18 05/22/17 15:00 BP 113/77 05/22/17 15:00 Pulse Ox 94 L 05/22/17 16:02 - Medical History PMH: Anxiety, Asthma, Bipolar Disorder, COPD, Depression Denies: Diabetes, Hepatitis, HIV, HTN, Chronic Kidney Disease, Seizures, Sexually Transmitted Disease Surgical History: Appendectomy, Tonsillectomy, (x 2) - [facility] Procedures DETOXIFICATION SERVICES FOR SUBSTANCE ABUSE TREATMENT (04/27/17) GROUP CHILDREN'S LUNCHROOM SUPERVISOR FOR SUBSTANCE ABUSE TREATMENT, PSYCHOEDUCATION (04/27/17) GROUP CHILDREN'S LUNCHROOM SUPERVISOR FOR SUBSTANCE ABUSE, COGNITIVE BEHAVIORAL (04/27/17) GROUP PSYCHOTHERAPY (10/03/16) INDIV PSYCHOTHERAPY FOR SUBSTANCE ABUSE TREATMENT, SUPPORT (04/27/17) INDIV PSYCHOTHERAPY FOR SUBSTANCE ABUSE, COGNITIV BEHAVIORAL (04/27/17) INDIV PSYCHOTHERAPY FOR SUBSTANCE ABUSE, PSYCHOEDUCATION (04/27/17) INDIVIDUAL PSYCHOTHERAPY, SUPPORTIVE (10/03/16) INJECT/INFUSE NEC (09/20/14) MEDICATION MANAGEMENT (10/03/16) NEBULIZER THERAPY (11/16/14) Family History: States: No Known Family Hx - Social History Hx Alcohol Use: No Hx Substance Use: Yes - Immunization History Hx Tetanus Toxoid Vaccination: No Hx Influenza Vaccination: Yes Hx Pneumococcal Vaccination: Yes Review Of Systems Except As Marked, All Systems Reviewed And Found Negative. Psych: Positive for: Suicidal ideation Physical Exam - Physical Exam Appears: No Acute Distress Skin: Normal Color, Warm Head: Atraumatic, Normacephalic Eye(s): bilateral: Normal Inspection, PERRL Nose: Normal Oral Mucosa: Moist Neck: Supple Chest: Symmetrical Cardiovascular: Rhythm Regular Respiratory: Normal Breath Sounds, No Accessory Muscle Use, No Rales, No Rhonchi , No Wheezing Extremity: Normal ROM Neurological/Psych: Oriented x3, Normal Speech, Normal Cognition, Normal Motor, Normal Sensation ED Course And Treatment - Laboratory Results Result Diagrams: 05/22/17 16:17 05/22/17 16:17 O2 Sat by Pulse Oximetry: 94 (RA) Pulse Ox Interpretation: Normal Medical Decision Making Medical Decision Making: Plan: --Labs --Urinalysis --Urine Drug Screen medically cleared no cardiopulm complaints, speaking full sentences in nad. minimal luekocytosis. no back ttp, no cough, no cardiopulm complaints Disposition - Disposition Disposition: HOSPITALIZED Disposition Time: 18:25 Condition: STABLE - Clinical Impression Clinical Impression: Bipolar disorder, Opiate dependence, continuous - Scribe Statement The provider has reviewed the documentation as recorded by the Cayetano Cueto Provider Attestation: All medical record entries made by the Scribe were at my direction and personally dictated by me. I have reviewed the chart and agree that the record accurately reflects my personal performance of the history, physical exam, medical decision making, and the department course for this patient. I have also personally directed, reviewed, and agree with the discharge instructions and disposition. Decision To Admit - Pt Status Changed To: Hospital Disposition Of: Inpatient - Admit Certification Admit to Inpatient:: After my assessment, the patient will require hospitalization for at least two midnights. This is because of the severity of symptoms shown, intensity of services needed, and/or the medical risk in this patient being treated as an outpatient. - InPatient: Physician Admission Certification: I certify that this patient requires 2 or more midnights of care for the following reason:: needs inpt pysch - . Bed Request Type: Psychiatry Admitting Physician: Payton Wise Patient Diagnosis: Bipolar disorder, Opiate dependence, continuous
[2017-05-22 15:59] LABS: HCG,QUALITATIVE URINE NEGATIVE (NEGATIVE)
[2017-05-22 16:11] LABS: BARBITURATES, UR NEGATIVE (NEGATIVE); PHENCYCLIDINE, UR NEGATIVE (NEGATIVE)
[2017-05-22 16:18] LABS: SQUAMOUS EPITHIAL 3 /hpf (0-5); URINE BILIRUBIN NEGATIVE (NEGATIVE); URINE BLOOD NEGATIVE (NEGATIVE); URINE CLARITY Hazy (Clear); URINE COLOR Yellow (YELLOW); URINE GLUCOSE (UA) NORMAL (Normal); URINE LEUKOCYTE ESTERASE NEG Leu/uL (Negative); URINE NITRATE NEGATIVE (NEGATIVE); URINE PROTEIN 1+ mg/dL (NEGATIVE)
[2017-05-22 16:22] LABS: BASO # 0.2 K/uL (0.0-0.2); BASO % 2.2 % (0.0-2.0); EOS # 0.2 K/uL (0.0-0.7); EOS % 1.7 % (0.0-4.0); HEMOGLOBIN 13.7 g/dL (11.0-16.0); LYMPH # 4.1 K/uL (1.0-4.3); MEAN CELL VOLUME 95.5 fL (81.0-99.0); MEAN CORPUSCULAR HEMOGLOBIN 32.3 pg (27.0-31.0); MEAN CORPUSCULAR HGB CONC 33.8 g/dL (33.0-37.0); MEAN PLATELET VOLUME 8.9 fL (7.2-11.7); MONO # 0.5 K/uL (0.0-0.8); MONO % 4.7 % (0.0-10.0); NEUT # 5.8 K/uL (1.8-7.0); NEUT % 53.4 % (50.0-75.0); NRBC % 0.2 % (0.0-2.0); RBC 4.22 Mil/uL (3.80-5.20); RED CELL DISTRIBUTION WIDTH 14.6 % (11.5-14.5); WHITE BLOOD COUNT 10.9 K/uL (4.8-10.8)
[2017-05-22 16:37] LABS: ALB/GLOB RATIO 1.2 (1.0-2.1); ALBUMIN 4.1 g/dL (3.5-5.0); ALT/SGPT 57 U/L (9-52); AST/SGOT 43 U/L (14-36); BLOOD UREA NITROGEN 11 mg/dL (7-17); CALCIUM 9.1 mg/dl (8.6-10.4); GFR AFRICAN-AMERICAN > 60; GFR NON-AFRICAN AMERICAN > 60
[2017-05-22 16:42] LABS: ACETAMINOPHEN < 10.0 ug/mL (10.0-30.0); SALICYLATE < 1.0 mg/dL 1
[2017-05-22 16:47] LABS: BENZODIAZEPINES, UR POSITIVE (NEGATIVE); OPIATES, UR POSITIVE (NEGATIVE)
[2017-05-22] MEDS ORDERED: Aluminum Hydroxide/Magnesium Hydroxide Susp (30 mL) PO PRN (19:55)
--- NOTE | 2017-05-22 20:40 | PCM.BM ---
<Erin Herrera - Last Filed: 05/22/17 20:37> Treatment Plan Problems - Problems identified on initial assessmt depression Date Initiated: 05/22/17 Time Initiated: 20:38 Assessment reference: NA Status: Active anxiety r/o substance absuse Date Initiated: 05/22/17 Time Initiated: 20:39 Assessment reference: NA Status: Active Treatment assets and liabiliti Patient Assests: cooperative, motivated, ADL independent, physically healthy, negotiates basic needs, cognitively intact Patient Liabilities: live alone, substance abuse <FrandyKaylanjuanita - Last Filed: 05/24/17 11:18> - Diagnosis (1) Bipolar disorder Status: Acute Interventions: 05/24/17 11:18 * Assess/adjust medications daily and /or as needed * See patient on an individual basis 7x/week to assess level of manic behaviors and stability * Discuss risks, benefits, side effects and alternatives of medications * (2) Opiate dependence, continuous Status: Acute Interventions: 05/24/17 11:18 * Assess 7x/week regarding severity of withdrawal * Educate regarding risks, benefits, side effects and alternatives of medications * Use Motivational Interviewing for abstinence * Use CBT for relapse prevention * Medication management for withdrawal symptoms * Encourage medication assisted treatment * <Bethanie Padilla - Last Filed: 05/24/17 11:20> Family Contact Family involvement: Famliy/SO not involved - Goals for Treatment Patient goals for treatment: "I want to be referred to [facility]." Discharge/Continuing Care - Education Needs Education Needs: Patient Medication, Patient Coping Skills, Patient Placement options, Patient Community resources - Discharge Discharge Criteria: Tolerates medication w/o severe side effects, Reduction of target symptoms Discharge to:: Home - Treatment Team Participation Discussed with Family/SO: No Was Patient/Family/SO present at Treatment Team Meeting: Yes
[2017-05-23 07:29] VITALS: O2SAT 95
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
[2017-05-24 06:45] VITALS: RESP 18
--- NOTE | 2017-05-24 11:19 | PCM.PYCHPN ---
Psychiatric Progress Note - Psychiatric Progress Note Patient seen today, length of contact: 15 min Patient Chief Complaint: I was feeling depressed and suicidal.' Problems Identified/Issues Discussed: Patient seen and evaluated, chart reviewed and discussed with the nurse. She reports depressed mood and feelings of hopelessness and helplessness. She still reports irritability and agitation. Patient remained isolated, confined and withdrawn. Patient reports withdrawal symptoms including nausea, headaches, cramps and sweating. Patient is compliant with medications and denies any side effects. Symptoms are improving but need more time to stabilize. Support and psychoeducation given. Medication Change: Yes Medical Record Reviewed: Yes Mental Status Examination - Cognitive Function Orientation: Person, Place, Situation, Time Memory: Intact Attention: WNL Concentration: Poor Association: WNL Fund of Knowledge: Poor - Mood Mood: Depressed, Anxious - Affect Affect: Constricted, Depressed - Formal Thought Process Formal Thought Process: Hallucinations, Paranoia - Suicidal Ideation Suicidal Ideation: No - Homicidal Ideation Homicidal Ideation: No Goal/Treatment Plan - Goal/Treatment Plan Need for Continued Stay: Severe depression anxiety, Severe functional impairment Progress Toward Problem(s) and Goals/Treatment Plan: Bipolar disorder mixed severe with psychotic features CBT Psychoeducation Supportive therapy, group therapy, individual therapy Fluoxetine 20 mg daily Neurontin 400 mg by mouth 3 times a day Risperdal 2 mg PO at bedtime Cogentin 1 mg by by mouth at bedtime Trazodone 50 mg by mouth daily at bedtime Opioid use disorder severe CBT Psychoeducation Supportive therapy, individual therapy Use [place] for abstinence Opioid withdrawal CBT Psychoeducation Supportive therapy, individual therapy Clonidine when necessary Methadone taper As per need medications - Smoking Cessation Smoking Cessation Initiated: No
--- NOTE | 2017-05-25 22:16 | PCM.PYCHPN ---
Psychiatric Progress Note - Psychiatric Progress Note Patient seen today, length of contact: 15 min Patient Chief Complaint: "I'm fine" Problems Identified/Issues Discussed: The pt is seen, chart reviewed, case discussed with staff. The pt is compliant with medications and reports no side-effects. Symptoms are improving but needs more time to stabilize. After care discussed, support and psychoeducation given. She wants to be d/c'ed tomorrow Medication Change: Yes Medical Record Reviewed: Yes Mental Status Examination - Cognitive Function Orientation: Person, Place, Situation, Time Memory: Intact Attention: WNL Concentration: Poor Association: WNL Fund of Knowledge: Poor - Mood Mood: Depressed, Anxious - Affect Affect: Constricted, Depressed - Formal Thought Process Formal Thought Process: Hallucinations, Paranoia - Suicidal Ideation Suicidal Ideation: No - Homicidal Ideation Homicidal Ideation: No Goal/Treatment Plan - Goal/Treatment Plan Need for Continued Stay: Severe depression anxiety, Severe functional impairment Progress Toward Problem(s) and Goals/Treatment Plan: Continue medications Support and psychoeducation daily Attend groups and activities daily After care planning by JORGE LUIS
--- NOTE | 2017-05-27 01:37 | PCM.PYCHPN ---
Psychiatric Progress Note - Psychiatric Progress Note Patient seen today, length of contact: 15 min Patient Chief Complaint: I'm feeling better.' Problems Identified/Issues Discussed: Patient seen and evaluated, chart reviewed and discussed with the nurse. Patient reports some improvement in the mood and reports improvement in the feelings of hopelessness and helplessness. Reports improvement in the irritability. She started coming out of the room. She reports improvement in the withdrawal symptoms. Patient reports withdrawal symptoms including nausea, headaches, cramps and sweating. Patient is compliant with medications and denies any side effects. Symptoms are improving but need more time to stabilize. Support and psychoeducation given. Medication Change: No Medical Record Reviewed: Yes Mental Status Examination - Cognitive Function Orientation: Person, Place, Situation, Time Memory: Intact Attention: WNL Concentration: Poor Association: WNL Fund of Knowledge: Poor - Mood Mood: Depressed, Anxious - Affect Affect: Constricted, Depressed - Formal Thought Process Formal Thought Process: Hallucinations, Paranoia - Suicidal Ideation Suicidal Ideation: No - Homicidal Ideation Homicidal Ideation: No Goal/Treatment Plan - Goal/Treatment Plan Need for Continued Stay: Severe depression anxiety, Severe functional impairment Progress Toward Problem(s) and Goals/Treatment Plan: Bipolar disorder mixed severe with psychotic features CBT Psychoeducation Supportive therapy, group therapy, individual therapy Fluoxetine 20 mg daily Neurontin 400 mg by mouth 3 times a day Risperdal 2 mg PO at bedtime Cogentin 1 mg by by mouth at bedtime Trazodone 50 mg by mouth daily at bedtime Opioid use disorder severe CBT Psychoeducation Supportive therapy, individual therapy Use [place] for abstinence Opioid withdrawal CBT Psychoeducation Supportive therapy, individual therapy Clonidine when necessary Methadone taper As per need medications
[2017-05-27 06:23] VITALS: TEMP 97.5
[2017-05-27 11:14] VITALS: BP 111/75; PULSE 77
--- NOTE | 2017-05-27 15:37 | PCM.PYCHDC ---
Mental Status Examination - Mental Status Examination Orientation: Person, Place, Situation, Time Memory: Intact Mood: Neutral Affect: Other (appropriate) Speech: Appropriate Attention: WNL Concentration: WNL Association: WNL Fund of Knowledge: WNL Formal Thought Process: No Impairment Description of patient's judgement and insight: fair Psychotic Thoughts and Behaviors: none Suicidal Ideation: No Current Homicidal Ideation?: No Discharge Summary - Discharge Note Reason for Hospitalization: bipolar disorder and opiate use. Laboratory Data: reviewed Consultations:: List each consultation separately and include: 1. Reason for request. 2. Findings. 3. Follow-up Summary of Hospital Course include:: 1. Description of specific treatment plan utilized for patients during their course of treatmen. 2. Summarize the time- course for resolution of acute symptoms and/or regressed behaviors. 3. Describe issues identified and worked on during hospitalization. 4. Describe medication utilized. 5. Describe medical problems identified and treated. 6. Reassessment of suicide risk Summary of Hospital Course: This is a 47 years old CF, unemployed and , with history of bipolar disorder opiate dependence came to the ED with depressed mood and auditory hallucinations telling her to kill herself suicidal ideation. Patient is well known to the [facility]. Patient was just discharged from [facility] almost 3 weeks ago. As per the patient she went to attend [facility]. Patient stated that, her son tried to overdose on heroin and she got him admitted in a rehabilitation in [place]. This unexpected family situation made her relapse on heroin. He started sniffing 4-5 bags of heroin daily. As per the ED notes patient reported, ''she has been experiencing auditory hallucinations with command to kill herself.'' Pt reported, ''the voices coming through the tv, she put the tv in the closet because the voices in the tv were persistent, commanding her to kill her self either by overdose on pills or hang herself.'' So she came to the hospital to get help. Patient reports depressed, mood hopelessness and helplessness. She also reports sometimes irritability and agitation. Pt states withdrawal symptoms such as abdominal cramps, irritability and anxiety. Pt reports she is suicidal and depressed, feeling guilty and shameful because her son overdosed and also had a triple heart attack. Pt presents with rapid speech and appears anxious. Past medical history Asthma during her stay in the hospital, patient was treated with Risperdal, fluoxetine , trazodone, gabapentin in and methadone. With the above treatmen patient started feeling better with no withdrawal symptoms. Today patient was stable and ready for discharge. At the time of evaluation and discharge patient was stable, had no delusions, no auditory or visual velazquez, no suicidal ideations or homicidal ideations. Patient was discharged in a stable condition. Patient will go to [facility] for follow-up care after discharge from the hospital. - Final Diagnosis (DSM 5) Condition upon Discharge: STABLE Disposition: HOME/ ROUTINE Prescriptions/Medication Reconciliation: FLUoxetine [Prozac] 20 mg PO DAILY #30 cap Gabapentin [Neurontin] 400 mg PO BID #60 cap risperiDONE [RisperDAL Tab] 2 mg PO HS #30 tab traZODone [Desyrel] 100 mg PO HS #30 tab - Smoking Cessation Smoking Cessation Medication prescribed: No - Antipsychotic Medications Pt discharged on 2 or more routine antipsychotic medications: No
== END 2017-05-27 14:50 | disposition home or self-care (01) | DRG 885 ==
LOC: C.ER 14:57 → C.5E 17:35
DX: F31.64 Bipolar disorder, current episode mixed, severe, with psychotic features (principal); R45.851 Suicidal ideations; F11.23 Opioid dependence with withdrawal; F41.9 Anxiety disorder, unspecified; J44.9 Chronic obstructive pulmonary disease, unspecified; Z79.899 Other long term (current) drug therapy

== ENCOUNTER 2017-08-25 14:43 | Inpatient (IN) | payer MEDICARE ==
[2017-08-25 14:44] VITALS: BMI 24.0
[2017-08-25 15:37] LABS: BASO # 0.1 K/uL (0.0-0.2); BASO % 0.8 % (0.0-2.0); EOS # 0.4 K/uL (0.0-0.7); EOS % 4.7 % (0.0-4.0); HCG,QUALITATIVE URINE NEGATIVE (NEGATIVE); HEMOGLOBIN 12.5 g/dL (11.0-16.0); LYMPH # 2.1 K/uL (1.0-4.3); MEAN CELL VOLUME 95.3 fL (81.0-99.0); MEAN CORPUSCULAR HEMOGLOBIN 32.6 pg (27.0-31.0); MEAN CORPUSCULAR HGB CONC 34.2 g/dL (33.0-37.0); MONO # 0.5 K/uL (0.0-0.8); MONO % 6.1 % (0.0-10.0); NEUT # 5.6 K/uL (1.8-7.0); NEUT % 64.4 % (50.0-75.0); NRBC % 0.1 % (0.0-2.0); RBC 3.83 Mil/uL (3.80-5.20); RED CELL DISTRIBUTION WIDTH 13.6 % (11.5-14.5); WHITE BLOOD COUNT 8.7 K/uL (4.8-10.8)
[2017-08-25 15:41] LABS: SQUAMOUS EPITHIAL < 1 /hpf (0-5); URINE BILIRUBIN NEGATIVE (NEGATIVE); URINE BLOOD NEGATIVE (NEGATIVE); URINE CLARITY Clear (Clear); URINE COLOR Straw (YELLOW); URINE GLUCOSE (UA) NORMAL (Normal); URINE LEUKOCYTE ESTERASE NEG Leu/uL (Negative); URINE PROTEIN NEGATIVE (NEGATIVE); URINE UROBILINOGEN NORMAL mg/dL (0.2-1.0)
--- NOTE | 2017-08-25 15:43 | C.PDOC ---
History Of Present Illness 47 y/o female presents to ED requested heroin detox and with suicidal ideation. Patient left AMA from ICU department at [facility] 10:30am with Narcan Drip. Patient was at ICU for accidental overdose. Patient is a known poly substance abuser and has no physical complaints at this time. Time Seen by Provider: 08/25/17 15:14 Chief Complaint (Nursing): Psychiatric Evaluation History Per: Patient History/Exam Limitations: no limitations Onset/Duration Of Symptoms: Days Current Symptoms Are (Timing): Still Present Suicide/Self Injury Attempted (Context): None Associated Symptoms: Suicidal Thoughts Past Medical History Reviewed: Historical Data, Nursing Documentation, Vital Signs Vital Signs: Last Vital Signs Temp 97.7 F 08/25/17 17:19 Pulse 82 08/25/17 17:19 Resp 18 08/25/17 17:19 BP 93/58 L 08/25/17 17:19 Pulse Ox 95 08/25/17 17:19 - Medical History PMH: Anxiety, Asthma, Bipolar Disorder, COPD, Depression Surgical History: Appendectomy, Tonsillectomy, (x 2) - [facility] DETOXIFICATION SERVICES FOR SUBSTANCE ABUSE TREATMENT (04/27/17) GROUP HAND DECORATOR FOR SUBSTANCE ABUSE TREATMENT, PSYCHOEDUCATION (04/27/17) GROUP HAND DECORATOR FOR SUBSTANCE ABUSE, COGNITIVE BEHAVIORAL (04/27/17) GROUP PSYCHOTHERAPY (10/03/16) INDIV PSYCHOTHERAPY FOR SUBSTANCE ABUSE TREATMENT, SUPPORT (04/27/17) INDIV PSYCHOTHERAPY FOR SUBSTANCE ABUSE, COGNITIV BEHAVIORAL (04/27/17) INDIV PSYCHOTHERAPY FOR SUBSTANCE ABUSE, PSYCHOEDUCATION (04/27/17) INDIVIDUAL PSYCHOTHERAPY, SUPPORTIVE (10/03/16) INJECT/INFUSE NEC (09/20/14) MEDICATION MANAGEMENT (10/03/16) NEBULIZER THERAPY (11/16/14) Family History: States: No Known Family Hx - Social History Hx Alcohol Use: No Hx Substance Use: Yes - Immunization History Hx Tetanus Toxoid Vaccination: No Hx Influenza Vaccination: Yes Hx Pneumococcal Vaccination: Yes Review Of Systems Constitutional: Negative for: Fever, Chills Cardiovascular: Negative for: Chest Pain Respiratory: Negative for: Shortness of Breath Gastrointestinal: Negative for: Nausea, Vomiting Psych: Positive for: Suicidal ideation. Negative for: Anxiety Physical Exam - Physical Exam Appears: Non-toxic, No Acute Distress, Other (Pleasant) Skin: Warm, Dry, No Rash Head: Atraumatic, Normacephalic Eye(s): right: Normal Inspection, left: Other (Prosthetic ) Oral Mucosa: Moist Neck: Normal ROM, Supple Cardiovascular: Rhythm Regular Respiratory: Normal Breath Sounds, No Rales, No Rhonchi, No Wheezing Gastrointestinal/Abdominal: Soft, No Tenderness, No Guarding, No Rebound Extremity: Normal ROM, Capillary Refill (<2 seconds) Neurological/Psych: Oriented x3, Normal Speech, Normal Cognition ED Course And Treatment - Laboratory Results Result Diagrams: 08/25/17 15:32 08/25/17 15:32 Lab Interpretation: Abnormal (tox + benzo's, opiates, methadone) Urine POC: Negative O2 Sat by Pulse Oximetry: 90 (RA) Disposition Doctor Will See Patient In The: Hospital Counseled Patient/Family Regarding: Studies Performed, Diagnosis - Disposition Disposition: HOSPITALIZED Disposition Time: 18:01 Condition: GOOD Forms: [facility] (Greenlandic) - Clinical Impression Clinical Impression: Bipolar disorder, Drug abuse, Opiate dependence, continuous - Scribe Statement The provider has reviewed the documentation as recorded by the Everibbrigitte Snyder All medical record entries made by the Everibbrigitte were at my direction and personally dictated by me. I have reviewed the chart and agree that the record accurately reflects my personal performance of the history, physical exam, medical decision making, and the department course for this patient. I have also personally directed, reviewed, and agree with the discharge instructions and disposition.
[2017-08-25 15:48] LABS: ALB/GLOB RATIO 1.1 (1.0-2.1); ALBUMIN 3.6 g/dL (3.5-5.0); ALT/SGPT 19 U/L (9-52); AST/SGOT 33 U/L (14-36); BLOOD UREA NITROGEN 8 mg/dL (7-17); CALCIUM 8.6 mg/dl (8.6-10.4); GFR AFRICAN-AMERICAN > 60; GFR NON-AFRICAN AMERICAN > 60
[2017-08-25 15:58] LABS: BARBITURATES, UR NEGATIVE (NEGATIVE); BENZODIAZEPINES, UR POSITIVE (NEGATIVE); OPIATES, UR POSITIVE (NEGATIVE); PHENCYCLIDINE, UR NEGATIVE (NEGATIVE)
[2017-08-25 16:03] LABS: ACETAMINOPHEN < 10.0 ug/mL (10.0-30.0); SALICYLATE < 1.0 mg/dL 1
--- NOTE | 2017-08-25 18:59 | PCM.BM ---
<Ratna Ruvalcaban - Last Filed: 08/25/17 18:55> Treatment Plan Problems - Problems identified on initial assessmt Substance Abuse Date Initiated: 08/25/17 Time Initiated: 18:55 Assessment reference: NA Status: Active Suicidal Ideation Date Initiated: 08/25/17 Time Initiated: 18:55 Assessment reference: NA Status: Monitor Treatment assets and liabiliti Patient Assests: cooperative, motivated, ADL independent, physically healthy, negotiates basic needs, cognitively intact Patient Liabilities: financial problems, substance abuse - Milieu Protocol Maintain good personal hygiene: daily Encourage regular showers, daily Remind patient to perform daily oral care, daily Assist patient to perform ADL's, every shift Encourage regular showers, every shift Remind patient to perform daily oral care, every shift Assist patient to perform ADL's Maintain personal safety: every shift Educate patient to report safety concerns to staff, every shift Monitor environment for contraband/sharps Medication safety: Monitor for expected outcome, potential side effects: every shift, Assess barriers to learning: every shift, Assess readiness for medication education: every shift <Payton Wise - Last Filed: 08/28/17 11:18> - Diagnosis (1) Bipolar disorder Status: Acute Interventions: 08/28/17 11:18 * Assess/adjust medications daily and /or as needed * See patient on an individual basis 7x/week to assess level of manic behaviors and stability * Discuss risks, benefits, side effects and alternatives of medications * (2) Opiate dependence, continuous Status: Acute Interventions: 08/28/17 11:18 * Assess 7x/week regarding severity of withdrawal * Educate regarding risks, benefits, side effects and alternatives of medications * Use Motivational Interviewing for abstinence * Use CBT for relapse prevention * Medication management for withdrawal symptoms * Encourage medication assisted treatment * <Merle Ray - Last Filed: 08/28/17 17:13> Family Contact Family involvement: Patient does not wish Family/SO involvement Family contact: Patient declines to allow family contact at present - Goals for Treatment Patient goals for treatment: "I want to go to an outpatient program that gives the viterol shot." Discharge/Continuing Care - Education Needs Education Needs: Patient Coping Skills, Patient Community resources - Discharge Discharge Criteria: Free of Suicidal thoughts, Normal sleep pattern, Ability to care for self, No longer exhibiting s/s of withdrawal, Reduction of target symptoms Discharge to:: Home - Treatment Team Participation Discussed with Family/SO: No Was Patient/Family/SO present at Treatment Team Meeting: Yes
[2017-08-25] MEDS ORDERED: Aluminum Hydroxide/Magnesium Hydroxide Susp (30 mL) PO PRN (19:36)
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
[2017-08-27] MEDS ORDERED: Pneumococcal 23-Valent Vaccine IM ONE (10:00)
--- NOTE | 2017-08-28 08:48 | PCM.PYCHPN ---
Psychiatric Progress Note - Psychiatric Progress Note Patient seen today, length of contact: 17 MIN Patient Chief Complaint: I AM NOT SLEEPING Problems Identified/Issues Discussed: PT SEEN AND EXAMINED DISCUSSED WITHH STAFF DISCUSSED NON ADHERENCE TROUBLE GETTING VIVATROL WITHDRAWAL SYMPTOMS Medical Problems: NOTHING ACUTE Diagnostic Results: REVIEWED DSM 5 Symptoms Update: MOOD SWINGS Medication Change: Yes (SEROQUEL) Medical Record Reviewed: Yes Mental Status Examination - Cognitive Function Orientation: Person, Place, Situation, Time Memory: Intact Attention: WNL Concentration: Poor Association: WNL Fund of Knowledge: WNL - Mood Mood: Depressed, Anxious - Affect Affect: Constricted - Speech Speech: Appropriate - Formal Thought Process Formal Thought Process: No Impairment - Suicidal Ideation Suicidal Ideation: No - Homicidal Ideation Homicidal Ideation: No Goal/Treatment Plan - Goal/Treatment Plan Need for Continued Stay: Discharge may exacerbated symptoms Progress Toward Problem(s) and Goals/Treatment Plan: BIPOLAR DISORDER NTRAZODONE SEROQUEL MOOD STABIILIZERS OPIATE WITHDRAWAL METHADONE TAPER OPIATE USE DISORDER NE CBT GROUP MILIEU AND RECREATIONAL THERAPY SUPPORTIVE PSYCHOTHERAPY Estimated Date of D/C: 09/04/17 - Smoking Cessation Smoking Cessation Initiated: No
--- NOTE | 2017-08-28 11:17 | PCM.PYCHPN ---
Psychiatric Progress Note - Psychiatric Progress Note Patient seen today, length of contact: 17 MIN Patient Chief Complaint: i am feeling depressed.' Problems Identified/Issues Discussed: Patient seen and evaluated, chart reviewed and discussed with the nurse. Today patient appears anxious and reports depressed mood. She reports feelings of hopelessness and helplessness. She still reports anxiety and cramps. She denies any auditory or visual hallucinations. She is taking medication and denies any side effects. She needs more time for stabilization. Supportive therapy and psychoeducation were given. Medication Change: Yes (SEROQUEL) Medical Record Reviewed: Yes Mental Status Examination - Cognitive Function Orientation: Person, Place, Situation, Time Memory: Intact Attention: WNL Concentration: Poor Association: WNL Fund of Knowledge: WNL - Mood Mood: Depressed, Anxious - Affect Affect: Constricted - Speech Speech: Appropriate - Formal Thought Process Formal Thought Process: No Impairment - Suicidal Ideation Suicidal Ideation: No - Homicidal Ideation Homicidal Ideation: No Goal/Treatment Plan - Goal/Treatment Plan Need for Continued Stay: Discharge may exacerbated symptoms Progress Toward Problem(s) and Goals/Treatment Plan: Bipolar disorder mixed severe with psychotic features Opioid use disorder severe Opioid withdrawal Sedative, 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 Attend groups and activities Supportive therapy and psychoeducation [place] for abstinence CBT for relapse prevention and depression Encourage MAT - Likes Irisitrol Refer to rehab or IOP Attend self-help groups as well [place] for smoking cessation and patch if needed Estimated Date of D/C: 09/04/17 - Smoking Cessation Smoking Cessation Initiated: No
[2017-08-28] MEDS ORDERED: Bacitracin 500 Units/gm Oint Foilpak UD TOP PRN (13:09)
[2017-08-29 06:41] VITALS: O2SAT 95
--- NOTE | 2017-08-29 10:52 | PCM.PYCHPN ---
Psychiatric Progress Note - Psychiatric Progress Note Patient seen today, length of contact: 17 MIN Problems Identified/Issues Discussed: Patient seen and evaluated, chart reviewed and discussed with the nurse. Today patient appears anxious and reports depressed mood. She reports some improvement in the feelings of hopelessness and helplessness. She still reports anxiety and cramps. She denies any auditory or visual hallucinations. She is taking medication and denies any side effects. She needs more time for stabilization. Supportive therapy and psychoeducation were given. Medication Change: No (Seroquel) Medical Record Reviewed: Yes Mental Status Examination - Cognitive Function Orientation: Person, Place, Situation, Time Memory: Intact Attention: WNL Concentration: Poor Association: WNL Fund of Knowledge: WNL - Mood Mood: Depressed, Anxious - Affect Affect: Constricted - Speech Speech: Appropriate - Formal Thought Process Formal Thought Process: No Impairment - Suicidal Ideation Suicidal Ideation: No - Homicidal Ideation Homicidal Ideation: No Goal/Treatment Plan - Goal/Treatment Plan Need for Continued Stay: Discharge may exacerbated symptoms, Severe functional impairment Progress Toward Problem(s) and Goals/Treatment Plan: Bipolar disorder mixed severe with psychotic features Opioid use disorder severe Opioid withdrawal Sedative, 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 Attend groups and activities Supportive therapy and psychoeducation [place] for abstinence CBT for relapse prevention and depression Encourage MAT - Likes Irisitrol Refer to rehab or IOP Attend self-help groups as well [place] for smoking cessation and patch if needed Estimated Date of D/C: 09/04/17
[2017-08-29] MEDS: Amoxicillin-Clav 500-125 mg Tab PO SCH (17:41)
[2017-08-30 05:57] VITALS: RESP 18
[2017-08-30] MEDS: Amoxicillin-Clav 500-125 mg Tab PO SCH ×2 (09:51→18:03)
--- NOTE | 2017-08-30 23:56 | PCM.PYCHPN ---
Psychiatric Progress Note - Psychiatric Progress Note Patient seen today, length of contact: 17 MIN Patient Chief Complaint: i am feeling depressed.' Problems Identified/Issues Discussed: Patient seen and evaluated, chart reviewed and discussed with the nurse. Today patient appears anxious and reports depressed mood. She reports some improvement in the feelings of hopelessness and helplessness. She still reports anxiety and cramps. She denies any auditory or visual hallucinations. She is taking medication and denies any side effects. She needs more time for stabilization. Supportive therapy and psychoeducation were given. Medication Change: No (Seroquel) Medical Record Reviewed: Yes Mental Status Examination - Cognitive Function Orientation: Person, Place, Situation, Time Memory: Intact Attention: WNL Concentration: Poor Association: WNL Fund of Knowledge: WNL - Mood Mood: Depressed, Anxious - Affect Affect: Constricted - Speech Speech: Appropriate - Formal Thought Process Formal Thought Process: No Impairment - Suicidal Ideation Suicidal Ideation: No - Homicidal Ideation Homicidal Ideation: No Goal/Treatment Plan - Goal/Treatment Plan Need for Continued Stay: Discharge may exacerbated symptoms, Severe functional impairment Progress Toward Problem(s) and Goals/Treatment Plan: Bipolar disorder mixed severe with psychotic features Opioid use disorder severe Opioid withdrawal Sedative, 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 Attend groups and activities Supportive therapy and psychoeducation [place] for abstinence CBT for relapse prevention and depression Encourage MAT - Likes Criselda Refer to rehab or IOP Attend self-help groups as well [place] for smoking cessation and patch if needed Estimated Date of D/C: 09/04/17
[2017-08-31 06:19] VITALS: TEMP 98.1
[2017-08-31 09:19] VITALS: BP 99/69; PULSE 69
--- NOTE | 2017-08-31 09:42 | PCM.PYCHDC ---
Mental Status Examination - Mental Status Examination Orientation: Person, Place, Situation, Time Memory: Intact Mood: Neutral Affect: Constricted Speech: Soft Attention: WNL Concentration: WNL Association: WNL Fund of Knowledge: WNL Formal Thought Process: No Impairment Description of patient's judgement and insight: good, fair Psychotic Thoughts and Behaviors: denies any AVH Suicidal Ideation: No Current Homicidal Ideation?: No Discharge Summary - Discharge Note Consultations:: List each consultation separately and include: 1. Reason for request. 2. Findings. 3. Follow-up Summary of Hospital Course include:: 1. Description of specific treatment plan utilized for patients during their course of treatmen. 2. Summarize the time- course for resolution of acute symptoms and/or regressed behaviors. 3. Describe issues identified and worked on during hospitalization. 4. Describe medication utilized. 5. Describe medical problems identified and treated. 6. 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 Attend groups and activities Supportive therapy and psychoeducation [place] for abstinence CBT for relapse prevention and depression Encourage MAT - Likes Kartikl Refer to rehab or IOP Attend self-help groups as well [place] for smoking cessation and patch if needed Prescriptions/Medication Reconciliation: Amoxicillin/Clavulanate [Augmentin 500 MG-125 MG Tab] 1 tab PO BID #14 tab FLUoxetine [Prozac] 20 mg PO DAILY #30 cap Gabapentin [Neurontin] 400 mg PO BID #60 cap QUEtiapine [Seroquel] 100 mg PO HS #30 tab risperiDONE [RisperDAL Tab] 2 mg PO HS #30 tab
[2017-08-31] MEDS: Amoxicillin-Clav 500-125 mg Tab PO SCH (09:50)
== END 2017-08-31 10:50 | disposition home or self-care (01) | DRG 885 ==
LOC: C.ER 14:43 → C.5E 18:00
PROVIDERS: ADMIT Psychiatry & Neurology Psychiatry; ATTEND Psychiatry & Neurology Psychiatry
PROC: HZ2ZZZZ Detoxification Services for Substance Abuse Treatment (ICD-10-PCS; principal; 2017-08-25)
DX: F31.64 Bipolar disorder, current episode mixed, severe, with psychotic features (principal); F11.23 Opioid dependence with withdrawal; F41.9 Anxiety disorder, unspecified; H54.40 Blindness, one eye, unspecified eye; F19.10 Other psychoactive substance abuse, uncomplicated; J44.9 Chronic obstructive pulmonary disease, unspecified

== ENCOUNTER 2017-09-21 09:38 | Emergency (ER) | payer MEDICARE, OTHER ==
[2017-09-21 09:38] VITALS: BMI 24.0
[2017-09-21 09:44] VITALS: BP 111/73; PULSE 92; RESP 20; TEMP 97.4; O2SAT 93
[2017-09-21] MEDS ORDERED: Naloxone 0.4 mg/ml Inj (Adult) IV ONE (09:49)
[2017-09-21] MEDS ORDERED: Naloxone 0.4 mg/ml Inj (Adult) ONE (09:52)
--- NOTE | 2017-09-21 09:59 | C.PDOC ---
History Of Present Illness 47 year old female brought to the ED by boyfriend for heroin overdose this morning. Patient has a history of polysubstance abuse, and was discharged from [facility] 2 hours prior for substance abuse. Following discharge, patient used intranasal heroin. Patient is ambulatory in the ED. Time Seen by Provider: 09/21/17 09:48 Chief Complaint (Nursing): Substance Abuse History Per: Patient History/Exam Limitations: intoxication Onset/Duration Of Symptoms: Hrs Current Symptoms Are (Timing): Still Present Modifying Factor(s): Other (Heroin) Additional History Per: Boyfriend Past Medical History Reviewed: Historical Data, Nursing Documentation, Vital Signs Vital Signs: Last Vital Signs Temp 97.4 F L 09/21/17 09:43 Pulse 92 H 09/21/17 09:43 Resp 20 09/21/17 09:43 BP 111/73 09/21/17 09:43 Pulse Ox 93 L 09/21/17 09:59 - Medical History PMH: Anxiety, Asthma, Bipolar Disorder, COPD, Depression Denies: Diabetes, Hepatitis, HIV, HTN, Chronic Kidney Disease, Seizures, Sexually Transmitted Disease Surgical History: Appendectomy, Tonsillectomy, (x 2) - [facility] DETOXIFICATION SERVICES FOR SUBSTANCE ABUSE TREATMENT (08/25/17) GROUP SOLAR PHOTOVOLTAIC SYSTEMS ENGINEER FOR SUBSTANCE ABUSE TREATMENT, PSYCHOEDUCATION (04/27/17) GROUP SOLAR PHOTOVOLTAIC SYSTEMS ENGINEER FOR SUBSTANCE ABUSE, COGNITIVE BEHAVIORAL (04/27/17) GROUP PSYCHOTHERAPY (10/03/16) INDIV PSYCHOTHERAPY FOR SUBSTANCE ABUSE TREATMENT, SUPPORT (04/27/17) INDIV PSYCHOTHERAPY FOR SUBSTANCE ABUSE, COGNITIV BEHAVIORAL (04/27/17) INDIV PSYCHOTHERAPY FOR SUBSTANCE ABUSE, PSYCHOEDUCATION (04/27/17) INDIVIDUAL PSYCHOTHERAPY, SUPPORTIVE (10/03/16) INJECT/INFUSE NEC (09/20/14) MEDICATION MANAGEMENT (10/03/16) NEBULIZER THERAPY (11/16/14) Family History: States: Unknown Family Hx - Social History Hx Alcohol Use: No Hx Substance Use: Yes - Immunization History Hx Tetanus Toxoid Vaccination: No Hx Influenza Vaccination: Yes Hx Pneumococcal Vaccination: Yes Review Of Systems Review Of Systems: ROS cannot be obtained secondary to pt's inabilty to answer questions. Physical Exam - Physical Exam Appears: Other (Hypersomnulent) Skin: Normal Color, Warm, Dry Head: Atraumatic, Normacephalic Eye(s): bilateral: EOMI, Other (Pinpoint right pupil; Left eye prosthesis) Oral Mucosa: Moist Neck: Normal ROM Chest: Symmetrical Cardiovascular: Rhythm Regular, No Murmur Respiratory: Normal Breath Sounds, No Accessory Muscle Use, Other (No respiratory distress) Gastrointestinal/Abdominal: Soft, No Tenderness, No Distention Extremity: Bilateral: Atraumatic, Normal Color And Temperature, Normal ROM Pulses: Left Dorsalis Pedis: Normal, Right Dorsalis Pedis: Normal Neurological/Psych: Normal Speech (responsive to questions), Other (Alert, awake , able to ambulate) Gait: Steady ED Course And Treatment O2 Sat by Pulse Oximetry: 93 (RA) Pulse Ox Interpretation: Abnormal Progress Note: Narcan 2 mg IV push given. Patient became immediately awake, oriented, argumentative, and is requesting to be discharged immediately. Reassessment Condition: Improved Medical Decision Making Medical Decision Making: Impression: heroine abuse reversed with narcan 2.0 IVP Disposition Doctor Will See Patient In The: Office Counseled Patient/Family Regarding: Studies Performed, Diagnosis, Rx Given - Disposition Referrals: Alcoholics Anonymous [Outside] [facility] [Outside] [facility] [Outside] [facility] [Outside] [facility] [Outside] Disposition: HOME/ ROUTINE Disposition Time: 09:59 Condition: GOOD Additional Instructions: keep Narcan handy and spray up nose in case of overdose of heroine Seek outpatient eval and assistance for your psych and substance abuse issues. Prescriptions: Naloxone HCl [Narcan] 4 mg NS ONCE PRN #1 spray PRN Reason: opiate abuse Instructions: Drug Abuse and Drug Addiction (DC) Forms: [facility] (Palestinian) - POA Present On Arrival: None - Clinical Impression Clinical Impression: Heroin abuse - Scribe Statement The provider has reviewed the documentation as recorded by the Cayetano Lamas Provider Attestation: All medical record entries made by the Everibbrigitte were at my direction and personally dictated by me. I have reviewed the chart and agree that the record accurately reflects my personal performance of the history, physical exam, medical decision making, and the department course for this patient. I have also personally directed, reviewed, and agree with the discharge instructions and disposition.
== END 2017-09-21 10:16 | disposition home or self-care (01) ==
LOC: C.ER 09:38
DX: F11.10 Opioid abuse, uncomplicated (principal)
CPT/HCPCS: 96374; 99283; J2310

== ENCOUNTER 2017-09-29 19:52 | Emergency (ER) | payer MEDICARE, OTHER ==
[2017-09-29 19:53] VITALS: BMI 24.0
[2017-09-29 20:34] LABS: BASO # 0.1 K/uL (0.0-0.2); BASO % 0.6 % (0.0-2.0); EOS # 0.5 K/uL (0.0-0.7); EOS % 4.5 % (0.0-4.0); LYMPH # 3.8 K/uL (1.0-4.3); LYMPH % 36.1 % (20.0-40.0); MEAN CELL VOLUME 96.1 fL (81.0-99.0); MEAN CORPUSCULAR HEMOGLOBIN 32.9 pg (27.0-31.0); MEAN CORPUSCULAR HGB CONC 34.3 g/dL (33.0-37.0); MEAN PLATELET VOLUME 8.7 fL (7.2-11.7); MONO # 0.8 K/uL (0.0-0.8); MONO % 7.5 % (0.0-10.0); NEUT # 5.4 K/uL (1.8-7.0); NEUT % 51.3 % (50.0-75.0); NRBC % 0.1 % (0.0-2.0); RBC 3.94 Mil/uL (3.80-5.20); RED CELL DISTRIBUTION WIDTH 13.8 % (11.5-14.5); WHITE BLOOD COUNT 10.5 K/uL (4.8-10.8)
[2017-09-29 20:36] LABS: HCG,QUALITATIVE URINE NEGATIVE (NEGATIVE)
[2017-09-29 20:39] LABS: SQUAMOUS EPITHIAL 7 /hpf (0-5); URINE BACTERIA OCC (<OCC); URINE BILIRUBIN NEGATIVE (NEGATIVE); URINE BLOOD NEGATIVE (NEGATIVE); URINE CLARITY Hazy (Clear); URINE COLOR Amber (YELLOW); URINE GLUCOSE (UA) NORMAL (Normal); URINE LEUKOCYTE ESTERASE NEG Leu/uL (Negative); URINE PROTEIN 1+ mg/dL (NEGATIVE)
[2017-09-29 20:49] LABS: BARBITURATES, UR NEGATIVE (NEGATIVE); PHENCYCLIDINE, UR NEGATIVE (NEGATIVE)
[2017-09-29 20:50] LABS: ALB/GLOB RATIO 1.1 (1.0-2.1); ALT/SGPT 48 U/L (9-52); AST/SGOT 52 U/L (14-36); BLOOD UREA NITROGEN 10 mg/dL (7-17); GFR AFRICAN-AMERICAN > 60; GFR NON-AFRICAN AMERICAN > 60
[2017-09-29 20:55] LABS: BENZODIAZEPINES, UR POSITIVE (NEGATIVE); OPIATES, UR POSITIVE (NEGATIVE)
--- NOTE | 2017-09-29 21:41 | C.PDOC ---
History Of Present Illness 47 year old female presents to the emergency department seeking a psychiatric admission. Patient is a local, homeless, polysubstance abuser with a history of bipolar disorder. Patient reports that she had occasional suicidal thoughts today, and admits to using heroin and benzodiazepines today. Time Seen by Provider: 09/29/17 20:09 Chief Complaint (Nursing): Psychiatric Evaluation History Per: Patient History/Exam Limitations: no limitations Onset/Duration Of Symptoms: Hrs Modifying Factor(s): Other (heroin, benzodiazepines) Associated Symptoms: Suicidal Thoughts Past Medical History Reviewed: Historical Data, Nursing Documentation, Vital Signs Vital Signs: Last Vital Signs Temp 98.1 F 09/29/17 22:01 Pulse 82 09/29/17 22:01 Resp 18 09/29/17 22:01 BP 115/82 09/29/17 22:01 Pulse Ox 97 09/29/17 22:01 - Medical History PMH: Anxiety, Asthma, Bipolar Disorder, COPD, Depression Denies: Diabetes, Hepatitis, HIV, HTN, Chronic Kidney Disease, Seizures, Sexually Transmitted Disease Surgical History: Appendectomy, Tonsillectomy, (x 2) - [facility] Procedures DETOXIFICATION SERVICES FOR SUBSTANCE ABUSE TREATMENT (08/25/17) GROUP DESKTOP SPECIALIST FOR SUBSTANCE ABUSE TREATMENT, PSYCHOEDUCATION (04/27/17) GROUP DESKTOP SPECIALIST FOR SUBSTANCE ABUSE, COGNITIVE BEHAVIORAL (04/27/17) GROUP PSYCHOTHERAPY (10/03/16) INDIV PSYCHOTHERAPY FOR SUBSTANCE ABUSE TREATMENT, SUPPORT (04/27/17) INDIV PSYCHOTHERAPY FOR SUBSTANCE ABUSE, COGNITIV BEHAVIORAL (04/27/17) INDIV PSYCHOTHERAPY FOR SUBSTANCE ABUSE, PSYCHOEDUCATION (04/27/17) INDIVIDUAL PSYCHOTHERAPY, SUPPORTIVE (10/03/16) INJECT/INFUSE NEC (09/20/14) MEDICATION MANAGEMENT (10/03/16) NEBULIZER THERAPY (11/16/14) Family History: States: No Known Family Hx - Social History Hx Alcohol Use: No Hx Substance Use: Yes - Immunization History Hx Tetanus Toxoid Vaccination: No Hx Influenza Vaccination: Yes Hx Pneumococcal Vaccination: Yes Review Of Systems Except As Marked, All Systems Reviewed And Found Negative. Neurological: Positive for: Altered Mental Status Psych: Positive for: Suicidal ideation Physical Exam - Physical Exam Appears: No Acute Distress Skin: Warm, Dry Head: Atraumatic, Normacephalic Eye(s): right: Normal Inspection, left: Other (prosthetic eye) Oral Mucosa: Moist Neck: Normal, Supple Chest: Symmetrical Cardiovascular: Rhythm Regular, No Murmur Respiratory: Normal Breath Sounds, No Rales, No Rhonchi, No Wheezing Gastrointestinal/Abdominal: Normal Exam, Soft, No Tenderness, No Guarding, No Rebound Extremity: Normal ROM Neurological/Psych: Oriented x3 ED Course And Treatment - Laboratory Results Result Diagrams: 09/29/17 20:28 09/29/17 20:23 Lab Interpretation: Abnormal (tox + opiate/benzo) Urine POC: Negative O2 Sat by Pulse Oximetry: 98 (RA) Pulse Ox Interpretation: Normal Progress Note: no ED tx Reassessment Condition: Unchanged (remains calm, cooperative) Medical Decision Making Medical Decision Making: baseline bipolar and heroine/benzo abuse ? malingering seen and evaled by Crisis, recommended d/c by Dr. Wise. Anthony.No acute issues. No SI/HI Plan: Alcohol Serum CMP Drug Screen CBC HCG Urinalysis Disposition Doctor Will See Patient In The: Office Counseled Patient/Family Regarding: Studies Performed, Diagnosis - Disposition Referrals: [facility] [Outside] [facility] [Outside] [facility] [Outside] [facility] [Outside] Disposition: HOME/ ROUTINE Disposition Time: 21:40 Condition: GOOD Additional Instructions: seek nightly Assisted placement Seek outpatient follow-up for your psych issues Seek Substance abuse programs for your abuse issues. Instructions: Bipolar Disorder, Drug Abuse and Drug Addiction (DC) Forms: [facility] (Micronesian) - Clinical Impression Clinical Impression: Heroin abuse, Benzodiazepine abuse, Bipolar disorder current episode depressed - Scribe Statement The provider has reviewed the documentation as recorded by the Scribe (Darek Beverly) Provider Attestation: All medical record entries made by the Scribe were at my direction and personally dictated by me. I have reviewed the chart and agree that the record accurately reflects my personal performance of the history, physical exam, medical decision making, and the department course for this patient. I have also personally directed, reviewed, and agree with the discharge instructions and disposition.
[2017-09-29 22:02] VITALS: BP 115/82; PULSE 82; RESP 18; TEMP 98.1
[2017-09-30 00:29] VITALS: O2SAT 98
== END 2017-09-29 22:01 | disposition home or self-care (01) ==
LOC: C.ER 19:52
DX: F31.9 Bipolar disorder, unspecified (principal); F11.10 Opioid abuse, uncomplicated; F13.10 Sedative, hypnotic or anxiolytic abuse, uncomplicated; Z59.0 Homelessness
CPT/HCPCS: 80053; 81001; 84703; 85025; 99283; G0480